=== PATIENT | male | born 1975 | race Hispanic/Latino ===

== ENCOUNTER 2019-03-29 11:34 | Observation (INO) | payer BC ==
[~2019-03-29] VITALS: Ht 177.8 cm; Wt 97.1 kg
[~2019-03-29 11:34] MED LIST: FISH OIL 1,0001 EAC2 PO; LISINOPRIL-HCT1 EACH PO; MULTI-VITAMIN1 EACH PO
--- OUTSIDE RECORDS SUMMARY | 2019-03-29 11:37 | XMS REPORT | Encounter Summary ---
Author Organization Unknown Address [address] [place] [address] Phone [phone] Care Team Providers Care Irish Moss Bleacher Name Role Phone Regan Chino 3 [phone] Reason for Visit Medical Complaint Instructions 1. Upper respiratory infection upper respiratory infection (cold): care instructions Tessalon Perles 100 mg capsule prednisone 10 mg tablet 2. Exposure to Influenzavirus rapid flu (A+B) Tamiflu 75 mg capsule 3. Expiratory wheezing peak flow 4. Sore throat symptom sore throat: care instructions rapid strep group A, throat 5. Body mass index 30+ - obesity body mass index: care instructions 6. Immunization due Discussion Note Take charge of your health handout given and discussed. SE of medictions discussed and pt verbalized understanding. Plan of Care Patient Instructions How can you care for yourself at home? Get plenty of rest. Drink plenty of fluids, enough so that your urine is light yellow or clear like water. If you have kidney, heart, or liver disease and have to limit fluids, talk with your doctor before you increase the amount of fluids you drink. Take an vxmb-tvd-zcbijdy pain medicine if needed, such as acetaminophen (Tylenol), ibuprofen (Advil, Motrin), or naproxen (Aleve), to relieve fever, headache, and muscle aches. Read and follow all instructions on the label. No one younger than 20 should take aspirin. It has been linked to Kacy syndrome, a serious illness. Do not smoke. Smoking can make the flu worse. If you need help quitting, talk to your doctor about stop-smoking programs and medicines. These can increase your chances of quitting for good. Breathe moist air from a hot shower or from a sink filled with hot water to help clear a stuffy nose. Before you use cough and cold medicines, check the label. These medicines may not be safe for young children or for people with certain health problems. If the skin around your nose and lips becomes sore, put some petroleum jelly on the area. To ease coughing: Drink fluids to soothe a scratchy throat. Suck on cough drops or plain hard candy. Take an vshm-jkg-ebitomy cough medicine that contains dextromethorphan to help you get some sleep. Read and follow all instructions on the label. Raise your head at night with an extra pillow. This may help you rest if coughing keeps you awake. Take any prescribed medicine exactly as directed. Call your doctor if you think you are having a problem with your medicine. To avoid spreading the flu Wash your hands regularly, and keep your hands away from your face. Stay home from school, work, and other public places until you are feeling better and your fever has been gone for at least 24 hours. The fever needs to have gone away on its own without the help of medicine. Ask people living with you to talk to their doctors about preventing the flu. They may get antiviral medicine to keep from getting the flu from you. To prevent the flu in the future, get a flu vaccine every fall. Encourage people living with you to get the vaccine. Cover your mouth when you cough or sneeze. When should you call for help? Call 911 anytime you think you may need emergency care. For example, call if: You have severe trouble breathing. Call your doctor now or seek immediate medical care if: You have new or worse trouble breathing. You seem to be getting much sicker. You feel very sleepy or confused. You have a new or higher fever. You get a new rash. Watch closely for changes in your health, and be sure to contact your doctor if: You begin to get better and then get worse. You are not getting better after 1 week. Reminders Provider Appointments None recorded. Lab Rapid Flu (A+B) 10/30/2018 [facility] Rapid Strep Group a, Throat 10/30/2018 [facility] Referral None recorded. Procedures None recorded. Surgeries None recorded. Imaging None recorded. Medications Name Start Date levofloxacin 500 mg tabs lisinopril 20 mg-hydrochlorothiazide 12.5 mg tablet TAKE TWO (2) TABLET(S) BY MOUTH ONCE A DAY. lisinopril/hydrochlorothiazide 20-12.5 mg tabs prednisone 10 mg tablet Take 1 tablet every day by oral route for 5 days. Tamiflu 75 mg capsule Take 1 capsule twice a day by oral route for 5 days. Tessalon Perles 100 mg capsule Take 1 capsule 3 times a day by oral route for 5 days. Medications Administered None recorded. Vitals Height Weight BMI Blood Pressure 5 ft 10 in 210 lbs 30.1 kg/m2 122/86 mm[Hg] Lab Results Date Name Specimen Result Interpretation Description Value Range Status Address 10/30/2018 Rapid Flu (A+B) Influenza a negative [facility]: [address] [place] [address] Influenza B negative [facility]: [address] [place] [address] Rapid Strep Group a, Throat Result negative [facility]: [address] [place] [address] Swab Location Left and Right tonsillar pillars [facility]: [address] [place] [address] Allergies Code Code System Name Reaction Severity Status Onset Penicillins Respiratory Distress Active Problems Name Status Onset Date Source Hypertensive Disorder Active 10/30/2018 Acute Upper Respiratory Infection Active Encounter Procedures None recorded. Vaccine List Vaccine Type Tdap 10/05/2011 Social History Smoking Status Never Smoker Past Encounters 10/30/2018 Upper Respiratory Infection; Exposure to Influenzavirus; Expiratory Wheezing; Sore Throat Symptom; Body Mass Index 30+ - Obesity; Immunization Due Niles Brito, [employer] MANAGER-C: [address] [place] [address], Ph. History of Present Illness Fuzpi-Muwqgasjid-Ztaobgi Reported By: Patient HPI: Location: head/sinuses, throat, chest. Quality: productive cough, sore throat, colored phlegm, nasal/sinus congestion. Duration: 3days. Severity: moderate, pain level 5/10. Onset/Timing: actual date 10/26/18. Context: no sick contacts. Modifying factors: OTC medication. Associated Symptoms: no shortness of breath, no wheezing, no change in number of pillows needed to sleep at night, no sweats, no significant weight gain, no significant weight loss, no morning cough, no vomiting, no diarrhea, no rash, no fever, yellow-green, thick sputum, sore throat, nausea, fever, muscle aches, headache Review of Systems:ROS as noted in the HPI Review of Systems Basic Reported By: Patient Physical Exam Adult Basic, Adult Male Complete Reported By: Patient Constitutional: General Appearance: healthy-appearing, well-nourished, well-developed. Level of Distress: mild distress, acutely ill. Ambulation: ambulating normally Psychiatric: Mental Status: active and alert. Orientation: to time, to place, to person Eyes: Lids and Conjunctivae: non-injected, no discharge, no pallor Apj-Szoj-Krkuu-Throat: Ears: no lesions on external ear, no outer ear tenderness, EACs clear, TMs clear, TM mobility normal. Hearing: no hearing loss. Nose: no lesions on external nose, nares patent, no septal deviation, nasal passages clear, no sinus tenderness, nasal discharge. Lips, Teeth, and Gums: no mouth or lip ulcers, no bleeding gums, normal dentition. Oropharynx: moist mucous membranes, no exudates, erythema, tonsils enlarged 1+ Neck: Lymph Nodes: no cervical LAD; submandibular LAD Lungs: Respiratory effort: no dyspnea, no tachypnea, no use of accessory muscles, no intercostal retractions. Auscultation: good air movement, expiratory wheezing Cardiovascular: Heart Auscultation: RRR, no murmurs
--- OUTSIDE RECORDS SUMMARY | 2019-03-29 11:37 | XMS REPORT | Continuity of Care Document ---
Author Author [facility] Interface Address Unknown Phone Unavailable Problems Problem Status Onset Date Classification Date Reported Comments Source History of hypertension 11/03/2018 Diagnosis 11/03/2018 [facility] Lower respiratory tract infection 11/03/2018 Diagnosis 11/03/2018 [facility] Immunization due 10/30/2018 Diagnosis 11/03/2018 [facility] Body mass index 30+ - obesity 10/30/2018 Diagnosis 11/03/2018 [facility] Sore throat symptom 10/30/2018 Diagnosis 11/03/2018 [facility] Expiratory wheezing 10/30/2018 Diagnosis 11/03/2018 [facility] Exposure to Influenzavirus 10/30/2018 Diagnosis 11/03/2018 [facility] Upper respiratory infection 10/30/2018 Diagnosis 11/03/2018 [facility] Hypertensive Disorder 10/30/2018 Problem 11/03/2018 [facility] Influenza-like symptoms 09/22/2017 Diagnosis 09/22/2017 [facility] Pain in throat 09/22/2017 Diagnosis 09/22/2017 [facility] Acute upper respiratory infection 07/25/2017 Diagnosis 07/25/2017 [facility] Acute pharyngitis 07/25/2017 Diagnosis 07/25/2017 [facility] Acute Upper Respiratory Infection Problem 11/03/2018 [facility] Medications Medication Details Route Status Patient Instructions Ordering Provider Order Date Source benzonatate 200 MG Oral Capsule benzonatate 200 mg capsule Take 1 capsule 3 times a day by oral route as needed. Active [facility] Fenofibrate 160 MG Oral Tablet fenofibrate 160 mg tablet TAKE ONE (1) TABLET(S) BY MOUTH ONCE A DAY WITH A MEAL. Active [facility] fluticasone propionate 50 mcg/act susp fluticasone propionate 50 mcg/act susp Active [facility] Hydrochlorothiazide 12.5 MG / Lisinopril 20 MG Oral Tablet lisinopril 20 mg-hydrochlorothiazide 12.5 mg tablet TAKE TWO (2) TABLET(S) BY MOUTH ONCE A DAY. Active [facility] Oseltamivir 75 MG Oral Capsule [Tamiflu] Tamiflu 75 mg capsule Take 1 capsule twice a day by oral route for 5 days. Active [facility] Tamsulosin hydrochloride 0.4 MG Oral Capsule tamsulosin 0.4 mg capsule TAKE ONE (1) CAPSULE(S) BY MOUTH 30 MINUTES AFTER SUPPER. Active [facility] Azithromycin 250 MG Oral Tablet Zithromax Z-Charles 250 mg tablet TAKE 2 TABLETS (500 MG) BY ORAL ROUTE ONCE DAILY FOR 1 DAY THEN 1 TABLET (250 MG) BY ORAL ROUTE ONCE DAILY FOR 4 DAYS Active [facility] Fluticasone propionate 0.05 MG/ACTUAT Metered Dose Nasal [place] fluticasone 50 mcg/actuation nasal spray,suspension [place] 2 sprays every day by intranasal route around the clock for 10 days. Active [facility] levocetirizine dihydrochloride 5 MG Oral Tablet levocetirizine 5 mg tablet Take 1 tablet every day by oral route as needed. Take at bedtime. Active [facility] Lidocaine Hydrochloride 20 MG/ML Mucous Membrane Topical Solution Lidocaine Viscous 2 % mucosal solution Take 15 mL every 3 hours by oral route as needed. Swish gargle & spit Active [facility] Hydrochlorothiazide 25 MG / Losartan Potassium 100 MG Oral Tablet losartan 100 mg-hydrochlorothiazide 25 mg tablet TAKE ONE (1) TABLET(S) BY MOUTH ONCE A DAY. Active [facility] [place]-3 Acid Ethyl Esters (PRISON) 1000 MG Oral Capsule omega- 3 acid ethyl esters 1 gram capsule TAKE TWO (2) CAPSULE(S) BY MOUTH TWICE A DAY. Active [facility] [id number] ethyl esters 1 gm caps [id number] ethyl esters 1 gm caps Active [facility] levofloxacin 500 mg tabs levofloxacin 500 mg tabs Active [facility] lisinopril/hydrochlorothiazide 20-12.5 mg tabs lisinopril/hydrochlorothiazide 20-12.5 mg tabs Active [facility] Prednisone 10 MG Oral Tablet prednisone 10 mg tablet TAKE ONE (1) TABLET(S) BY MOUTH ONCE A DAY FOR 5 DAYS. Active [facility] benzonatate 100 MG Oral Capsule [Tessalon Perles] Tessalon Perles 100 mg capsule Take 1 capsule 3 times a day by oral route for 5 days. Active [facility] benzonatate 100 MG Oral Capsule benzonatate 100 mg capsule TAKE ONE (1) CAPSULE(S) BY MOUTH THREE TIMES A DAY FOR 5 DAYS. Active [facility] Brompheniramine Maleate 0.4 MG/ML / Dextromethorphan Hydrobromide 2 MG/ML / Pseudoephedrine Hydrochloride 6 MG/ML Oral Solution [Bromfed DM] Bromfed DM 2 mg-30 mg-10 mg/5 mL oral syrup Take 10 mL 3 times a day by oral route as needed for cough and congestion for 7 days. Active [facility] Oseltamivir 75 MG Oral Capsule oseltamivir 75 mg capsule TAKE ONE (1) CAPSULE(S) BY MOUTH TWICE A DAY FOR 5 DAYS. Active [facility] Allergies, Adverse Reactions, Alerts Substance Category Reaction Severity Reaction type Status Date Reported Comments Source Penicillins Respiratory distress Allergy to substance 11/15/2015 [facility] Immunizations Immunization Date Given Site Status Last Updated Comments Source Tdap 10/05/2011 completed [facility] Results Order Name Results Value Reference Range Date Interpretation Comments Source PEF 450 11/03/2018 [facility] Percent Predicted Value 71 11/03/2018 [facility] RESULT negative 11/03/2018 [facility] SWAB LOCATION Left and Right tonsillar pillars 11/03/2018 [facility] PEF 610 10/30/2018 [facility] Percent Predicted Value 96 10/30/2018 [facility] Influenza A negative 10/30/2018 [facility] Influenza B negative 10/30/2018 [facility] Influenza A negative 10/30/2018 [facility] Influenza B negative 10/30/2018 [facility] RESULT negative 10/30/2018 [facility] SWAB LOCATION Left and Right tonsillar pillars 10/30/2018 [facility] RESULT negative 09/22/2017 [facility] SWAB LOCATION Left and Right tonsillar pillars 09/22/2017 [facility] RESULT negative 07/25/2017 [facility] SWAB LOCATION Left and Right tonsillar pillars 07/25/2017 [facility] Influenza A negative 07/25/2017 [facility] Influenza B negative 07/25/2017 [facility] Vital Signs Vital Sign Value Date Comments Source Diastolic (mm Hg) 84 11/03/2018 [facility] Height 70 11/03/2018 [facility] Systolic (mm Hg) 120 11/03/2018 [facility] Weight 210 11/03/2018 [facility] Diastolic (mm Hg) 86 10/30/2018 [facility] Height 70 10/30/2018 [facility] Systolic (mm Hg) 122 10/30/2018 [facility] Weight 210 10/30/2018 [facility] Diastolic (mm Hg) 80 09/22/2017 [facility] Height 70 09/22/2017 [facility] Systolic (mm Hg) 122 09/22/2017 [facility] Weight 214 09/22/2017 [facility] Diastolic (mm Hg) 72 07/25/2017 [facility] Height 70 07/25/2017 [facility] Systolic (mm Hg) 114 07/25/2017 [facility] Weight 214 07/25/2017 [facility] Encounters Location Location Details Encounter Type Encounter Number Reason For Visit Attending Provider ADM Date DC Date Status Source [place] - [facility] - [id number] LorieRAIZA CastroP-C: [address] [place] [address], Ph. [id number] Lorie Jones 07/25/2017 [facility] [place] [facility] - [id number] RAIZA PattersonP-C: [address] [place] [address], Ph. [id number] Steven Ashley 09/22/2017 [facility] [place] - [facility] - [id number] RAIZA LopezP-C: [address] [place] [address], Ph. [id number] Niles Brito 10/30/2018 [facility] [place] - [facility] - [id number] NIRAJ Lopez-C: [address] [place] [address], Ph. [id number] Niles Brito 10/30/2018 [facility] [place] - [facility] - [id number] NIRAJ Lopez-C: [address] [facility], [place] [address], Ph. [id number] Niles Brito 11/03/2018 [facility] Procedures Procedure Code Date Perfomer Comments Source
--- OUTSIDE RECORDS SUMMARY | 2019-03-29 11:37 | XMS REPORT | Encounter Summary ---
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 Acute upper respiratory infection upper respiratory infection (cold): care instructions fluticasone 50 mcg/actuation nasal spray,suspension rapid flu (A+B) levocetirizine 5 mg tablet 2. Acute pharyngitis sore throat: care instructions Lidocaine Viscous 2 % mucosal solution rapid strep group A, throat azithromycin 250 mg tablet Discussion Note Pt is in NAD; Verbalizes understanding of all instructions with no questions at this time. Plan of Care Patient Instructions Stop dayquil and nyquil. Take fluticasone as needed for congestion. [place] one spray in each nostril twice a day. Take a warm, steamy shower, blow your nose thereafter, and spray in each nostril. Tilt your head up for about 10 seconds and breath through your mouth. Do not sniff or snort the medication in or else the medication will go to your throat and not be absorbed appropriately. Gargle and spit viscous lidocaine as needed for sore throat as directed. if there is no improvement of sore throat in 48-72 hrs start antibiotic and take as directed.Take levocetirizine for allergy like symptoms like runny nose, sneezing and watery eyes. Alternate with Ibuprofen and acetaminophen every 4hrs as needed for pain/fever/pain/headache. Proper hydration and rest. Return to work/school if free of fever for 24-hrs Do not share any utensils/cups, no kissing, recommend hand washing after coughing/sneezing/blowing nose and cover face when you do so. Take medications as prescribed. Return to clinic or follow up with your PCP within 2-3 days if symptoms worsen as discussed. Reminders Provider Appointments None recorded. Lab Rapid Flu (A+B) 07/25/2017 [facility] Rapid Strep Group a, Throat 07/25/2017 [facility] Referral None recorded. Procedures None recorded. Surgeries None recorded. Imaging None recorded. Medications Name Start Date azithromycin 250 mg tablet TAKE 2 TABLETS (500 MG) BY ORAL ROUTE ONCE DAILY FOR 1 DAY THEN 1 TABLET (250 MG) BY ORAL ROUTE ONCE DAILY FOR 4 DAYS fenofibrate 160 mg tablet TAKE ONE (1) TABLET(S) BY MOUTH ONCE A DAY WITH A MEAL. fluticasone 50 mcg/actuation nasal spray,suspension [place] 2 sprays every day by intranasal route around the clock for 10 days. levocetirizine 5 mg tablet Take 1 tablet every day by oral route as needed. Take at bedtime. Lidocaine Viscous 2 % mucosal solution Take 15 mL every 3 hours by oral route as needed. losartan 100 mg-hydrochlorothiazide 25 mg tablet TAKE ONE (1) TABLET(S) BY MOUTH ONCE A DAY. omega-3 acid ethyl esters 1 gram capsule TAKE TWO (2) CAPSULE(S) BY MOUTH TWICE A DAY. [id number]-[id number] ethyl esters 1 gm caps tamsulosin 0.4 mg capsule TAKE ONE (1) CAPSULE(S) BY MOUTH 30 MINUTES AFTER SUPPER. Medications Administered None recorded. Vitals Height Weight BMI Blood Pressure 5 ft 10 in 214 lbs 30.7 kg/m2 114/72 mm[Hg] Lab Results Date Name Specimen Result Interpretation Description Value Range Status Address Rapid Strep Group a, Throat Result negative [facility]: [address] [place] [address] Swab Location Left and Right tonsillar pillars [facility]: [address] [place] [address] Rapid Flu (A+B) Influenza a negative [facility]: [address] [place] [address] Influenza B negative [facility]: [address] [place] [address] Allergies Code Code System Name Reaction Severity Status Onset Penicillins Active Problems Name Status Onset Date Source Acute Upper Respiratory Infection Active Encounter Procedures None recorded. Vaccine List Vaccine Type Tdap 10/05/2011 Social History Smoking Status Never Smoker Past Encounters 07/25/2017 Acute Upper Respiratory Infection; Acute Pharyngitis NIRAJ Lloyd-C: [address] [place] [address], Ph. History of Present Illness [id number] Reported By: Patient HPI: Quality: symptoms worse during the day. Duration: 1 days. Severity: subjective temperature. Context: no ill contacts, no tick/insect bites, no recent travel, no new medications. Associated Symptoms: no fever/chills, no headache, no muscle aches, no rash, no lethargy, cough, nasal passage blockage (stuffiness), nasal discharge; sore throat, sneezing, and body aches. Modifying Factors nothing gives relief Note:<div>
</div> Review of Systems:ROS as noted in the HPI Review of Systems Basic Reported By: Patient Physical Exam Adult Basic, Adult Female Complete, Adult Male Complete Reported By: Patient Constitutional: General Appearance: healthy-appearing, well-nourished, well-developed. Level of Distress: NAD. Ambulation: ambulating normally Psychiatric: Mental Status: active and alert. Orientation: to time, to place, to person Trj-Nfln-Dfyrc-Throat: Ears: no lesions on external ear, no outer ear tenderness, EACs clear, TMs clear. Hearing: no hearing loss. Nose: no lesions on external nose, nares patent, no septal deviation, nasal passages clear, no sinus tenderness, nasal discharge--rhinorrhea, post nasal drip. Lips, Teeth, and Gums: no mouth or lip ulcers, no bleeding gums, normal dentition. Oropharynx: moist mucous membranes, no exudates, tonsils not enlarged, erythema Neck: Lymph Nodes: no cervical LAD Lungs: Respiratory effort: no dyspnea, no tachypnea, no use of accessory muscles, no intercostal retractions. Auscultation: breath sounds normal, good air movement Cardiovascular: Heart Auscultation: RRR, no murmurs Neurologic: Gait and Station: normal gait, normal station
--- OUTSIDE RECORDS SUMMARY | 2019-03-29 11:37 | XMS REPORT | Encounter Summary ---
Author Organization Unknown Address [address] [place] [address] Phone [phone] Care Team Providers Care Backwinder Name Role Phone Regan Chino 3 [phone] Reason for Visit Medical Complaint Instructions 1. Influenza-like symptoms Tamiflu 75 mg capsule benzonatate 200 mg capsule 2. Pain in throat sore throat: care instructions rapid strep group A, throat Discussion Note: None recorded. Plan of Care Patient Instructions otc tylenol and ibuprofen for fever and body aches. increase fluids. follow up pcp Reminders Provider Appointments None recorded. Lab Rapid Strep Group a, Throat 09/22/2017 [facility] Referral None recorded. Procedures None recorded. Surgeries None recorded. Imaging None recorded. Medications Name Start Date benzonatate 200 mg capsule Take 1 capsule 3 times a day by oral route as needed. fenofibrate 160 mg tablet TAKE ONE (1) TABLET(S) BY MOUTH ONCE A DAY WITH A MEAL. fluticasone propionate 50 mcg/act susp lisinopril 20 mg-hydrochlorothiazide 12.5 mg tablet TAKE TWO (2) TABLET(S) BY MOUTH ONCE A DAY. Tamiflu 75 mg capsule Take 1 capsule twice a day by oral route for 5 days. tamsulosin 0.4 mg capsule TAKE ONE (1) CAPSULE(S) BY MOUTH 30 MINUTES AFTER SUPPER. Medications Administered None recorded. Vitals Height Weight BMI Blood Pressure 5 ft 10 in 214 lbs 30.7 kg/m2 122/80 mm[Hg] Lab Results Date Name Specimen Result Interpretation Description Value Range Status Address Rapid Strep Group a, Throat Result negative [facility]: [address] [place] [address] Swab Location Left and Right tonsillar pillars [facility]: [address] [place] [address] Allergies Code Code System Name Reaction Severity Status Onset Penicillins Respiratory Distress Active Problems Name Status Onset Date Source Acute Upper Respiratory Infection Active Encounter Procedures None recorded. Vaccine List Vaccine Type Tdap 10/05/2011 Social History Smoking Status Never Smoker Past Encounters 09/22/2017 Influenza-like Symptoms; Pain in Throat NIRAJ [facility]: [address], [place] [address], Ph. History of Present Illness Rbvhr-Wmbgjpgblh-Fkvlqxd Reported By: Patient HPI: Location: head/sinuses, throat, chest. Quality: productive cough, sore throat. Duration: 1days. Severity: moderate. Onset/Timing: gradual. Context: no foreign travel, non-smoker, sick contact. Modifying factors: OTC medication. Associated Symptoms: no shortness of breath, no wheezing, no change in number of pillows needed to sleep at night, no sweats, no significant weight gain, no significant weight loss, no morning cough, no vomiting, no diarrhea, no rash, no nausea, no fever, no headache, yellow sputum, fatigue, sore throat, fever, muscle aches Review of Systems:ROS as noted in the HPI Review of Systems Basic Reported By: Patient Physical Exam Adult Basic, Adult Male Complete Reported By: Patient Constitutional: General Appearance: healthy-appearing, well-nourished, well-developed. Level of Distress: NAD. Ambulation: ambulating normally Psychiatric: Mental Status: active and alert Eyes: Lids and Conjunctivae: non-injected, no discharge Mqx-Rsxc-Hwyqv-Throat: Ears: no lesions on external ear, no outer ear tenderness, EACs clear, TMs clear, TM mobility normal. Hearing: no hearing loss. Nose: no lesions on external nose, nares patent, no septal deviation, nasal passages clear, no sinus tenderness, nasal discharge--purulent; congestion. Lips, Teeth, and Gums: no mouth or lip ulcers. Oropharynx: moist mucous membranes, no erythema, no exudates, tonsils not enlarged Neck: Neck: trachea midline. Lymph Nodes: no cervical LAD Lungs: Respiratory effort: no dyspnea, no tachypnea, no use of accessory muscles, no intercostal retractions. Auscultation: breath sounds normal, good air movement Cardiovascular: Heart Auscultation: RRR, no murmurs
--- OUTSIDE RECORDS SUMMARY | 2019-03-29 11:38 | XMS REPORT | Encounter Summary ---
Author Organization Unknown Address [address] [place] [address] Phone [phone] Care Team Providers Care Manager Trading Name Role Phone Regan Chino 3 [phone] Reason for Visit Medical Complaint Instructions 1. Lower respiratory tract infection Zithromax Z-Charles 250 mg tablet Bromfed DM 2 mg-30 mg-10 mg/5 mL oral syrup peak flow 2. Sore throat symptom sore throat: care instructions Lidocaine Viscous 2 % mucosal solution 3. Immunization due 4. History of hypertension 5. Body mass index 30+ - obesity body mass index: care instructions Discussion Note Take charge of your health handout given and discussed. SE of medictions discussed and pt verbalized understanding. Plan of Care Patient Instructions How can you care for yourself at home? Be safe with medicines. Take your medicines exactly as prescribed. Call your doctor if you think you are having a problem with your medicine. Take your antibiotics as directed. Do not stop taking them just because you feel better. You need to take the full course of antibiotics. Ask your doctor if you can take an munh-qlz-ljjrtcb pain medicine, such as acetaminophen (Tylenol), ibuprofen (Advil, Motrin), or naproxen (Aleve). Read and follow all instructions on the label. Do not take two or more pain medicines at the same time unless the doctor told you to. Many pain medicines have acetaminophen, which is Tylenol. Too much acetaminophen (Tylenol) can be harmful. Take care of your cough so you can rest. A cough that brings up mucus from your lungs is common with pneumonia. It is one way your body gets rid of the infection. But if coughing keeps you from resting or causes severe fatigue and chest-wall pain, talk to your doctor. He or she may suggest that you take a medicine to reduce the cough. Do not smoke or allow others to smoke around you. When should you call for help? Call 911 anytime you think you may need emergency care. For example, call if: You have severe trouble breathing. Call your doctor now or seek immediate medical care if: You cough up dark brown or bloody mucus (sputum). You have new or worse trouble breathing. You are dizzy or lightheaded, or you feel like you may faint. Watch closely for changes in your health, and be sure to contact your doctor if: You have a new or higher fever. Your cough or wheezing has not gone away after 2 to 4 weeks. You are not getting better as expected. Reminders Provider Appointments None recorded. Lab None recorded. Referral None recorded. Procedures None recorded. Surgeries None recorded. Imaging None recorded. Medications Name Start Date benzonatate 100 mg capsule TAKE ONE (1) CAPSULE(S) BY MOUTH THREE TIMES A DAY FOR 5 DAYS. Bromfed DM 2 mg-30 mg-10 mg/5 mL oral syrup Take 10 mL 3 times a day by oral route as needed for cough and congestion for 7 days. fenofibrate 160 mg tablet TAKE ONE (1) TABLET(S) BY MOUTH ONCE A DAY WITH A MEAL. levofloxacin 500 mg tabs Lidocaine Viscous 2 % mucosal solution Take 15 mL every 3 hours by oral route as needed. Swish gargle & spit lisinopril 20 mg-hydrochlorothiazide 12.5 mg tablet TAKE TWO (2) TABLET(S) BY MOUTH ONCE A DAY. oseltamivir 75 mg capsule TAKE ONE (1) CAPSULE(S) BY MOUTH TWICE A DAY FOR 5 DAYS. prednisone 10 mg tablet TAKE ONE (1) TABLET(S) BY MOUTH ONCE A DAY FOR 5 DAYS. Zithromax Z-Charles 250 mg tablet TAKE 2 TABLETS (500 MG) BY ORAL ROUTE ONCE DAILY FOR 1 DAY THEN 1 TABLET (250 MG) BY ORAL ROUTE ONCE DAILY FOR 4 DAYS Medications Administered None recorded. Vitals Height Weight BMI Blood Pressure 5 ft 10 in 210 lbs 30.1 kg/m2 120/84 mm[Hg] Lab Results Date Name Specimen Result Interpretation Description Value Range Status Address 10/30/2018 Peak Flow Pef 610 [facility]: [address] [place] [address] Percent Predicted Value 96 [facility]: [address] [place] [address] 10/30/2018 Rapid Flu (A+B) Influenza a negative [facility]: [address] [place] [address] Influenza B negative [facility]: [address] [place] [address] Peak Flow Pef 450 [facility]: [facility] Percent Predicted Value 71 [facility]: [facility] Rapid Strep Group a, Throat Result negative [facility]: [facility] Swab Location Left and Right tonsillar pillars [facility]: [facility] Allergies Code Code System Name Reaction Severity Status Onset Penicillins Respiratory Distress Active Problems Name Status Onset Date Source Hypertensive Disorder Active 10/30/2018 Acute Upper Respiratory Infection Active Encounter Procedures None recorded. Vaccine List Vaccine Type Tdap 10/05/2011 Social History Smoking Status Never Smoker Past Encounters 11/03/2018 Lower Respiratory Tract Infection; Sore Throat Symptom; Immunization Due; History of Hypertension; Body Mass Index 30+ - Obesity MARCO Lopez: [address] [place] [address], Ph. 10/30/2018 Upper Respiratory Infection; Exposure to Influenzavirus; Expiratory Wheezing; Sore Throat Symptom; Body Mass Index 30+ - Obesity; Immunization Due MARCO Lopez: [address] [place] [address], Ph. History of Present Illness Cough Reported By: Patient HPI: Location: chest, nasal/sinus. Quality: colored phlegm, feels 60 percent of normal. Duration: 6 days. Severity: moderate, pain level 6/10. Onset/Timing: gradual. Context: no sick contacts, no foreign travel, non-smoker. Modifying factors: ; Tamiflu. Associated Symptoms: no wheezing, no sweats, no significant weight gain, no significant weight loss, no sore throat, no vomiting, no diarrhea, no rash, no nausea, no fever/chills, no muscle aches, chest pain, rust colored sputum, shortness of breath, difficulty breathing at night, morning cough, headache Sumcv-Jugcabboxi-Gqromkb Reported By: Patient HPI: Location: head/sinuses, throat, [...] By: Patient Constitutional: General Appearance: healthy-appearing, well-nourished, well-developed, overweight. Level of Distress: mild distress, acutely ill. Ambulation: ambulating normally Psychiatric: Mental Status: active and alert. Orientation: to time, to place, to person Eyes: Lids and Conjunctivae: non-injected, no discharge, no pallor Ryz-Tmha-Enjdq-Throat: Ears: no lesions on external ear, no outer ear tenderness, EACs clear, TMs clear, TM mobility normal. Hearing: no hearing loss. Nose: no lesions on external nose, nares patent, no septal deviation, nasal passages clear, no sinus tenderness, no nasal discharge. Lips, Teeth, and Gums: no mouth or lip ulcers, no bleeding gums, normal dentition. Oropharynx: moist mucous membranes, no erythema, no exudates, tonsils not enlarged Neck: Lymph Nodes: no cervical LAD Lungs: Respiratory effort: no dyspnea, no tachypnea, no use of accessory muscles, no intercostal retractions. Auscultation: breath sounds normal, good air movement Cardiovascular: Heart Auscultation: RRR, no murmurs
[2019-03-29] MEDS ORDERED: ASPIRIN 81 MG CHEW TAB PO ONE (12:00)
[2019-03-29 12:47] LABS: BASOPHILS % 0.6 % (0.0-1.0); EOSINOPHILS # (AUTO) 0.1 (0.0-0.4); EOSINOPHILS % 1.7 % (0.0-6.0); HEMATOCRIT 42.1 % (38.2-49.6); LYMPHOCYTES # (AUTO) 2.6 (1.0-3.2); LYMPHOCYTES % 39.8 % (18.0-39.1); MEAN CORPUSCULAR HEMOGLOBIN 29.5 pg (28-32); MEAN CORPUSCULAR HGB CONC 35.6 g/dL (31-35); MEAN CORPUSCULAR VOLUME 82.7 fL (81-99); MONOCYTES # (AUTO) 0.5 (0.2-0.8); MONOCYTES % 8.2 % (4.4-11.3); NEUTROPHILS # (AUTO) 3.2 (2.1-6.9); NEUTROPHILS % 49.4 % (38.7-80.0); PLATELET COUNT 280 x10e3/uL (140-360); RED BLOOD COUNT 5.09 x10e6/uL (4.3-5.7)
[2019-03-29 13:02] LABS: INR 0.86; PROTHROMBIN TIME 12.2 seconds (11.9-14.5)
[2019-03-29 13:03] LABS: PARTIAL THROMBOPLASTIN TIME 29.6 seconds (23.8-35.5)
[2019-03-29 13:09] LABS: ALANINE AMINOTRANSFERASE 43 IU/L (0-55); ALBUMIN 4.9 g/dL (3.5-5.0); ALBUMIN/GLOBULIN RATIO 1.4 (0.8-2.0); ALKALINE PHOSPHATASE 55 IU/L (40-150); BLOOD UREA NITROGEN 12 mg/dL (7-26); BUN/CREATININE RATIO 11 (6-25); CALCIUM 10.4 mg/dL (8.4-10.2); CARBON DIOXIDE 25 mmol/L (22-29); CREATINE KINASE 212 IU/L (30-200); CREATININE, SERUM 1.06 mg/dL (0.72-1.25); EST GLOMERULAR FILTRATION RATE > 60 ML/MIN (60-); GLUCOSE 98 mg/dL (74-118); HDL CHOLESTEROL 44 MG/DL (40-60); MAGNESIUM 2.4 MG/DL (1.3-2.1); TRIGLYCERIDES 486 MG/DL (0-149)
[2019-03-29 13:18] LABS: BILIRUBIN,URINE NEGATIVE (NEGATIVE); CLARITY,URINE CLEAR (CLEAR); COLOR,URINE YELLOW (YELLOW); KETONES,URINE NEGATIVE (NEGATIVE); LEUKOCYTE ESTERASE ,URINE NEGATIVE (NEGATIVE); NITRITE,URINE NEGATIVE (NEGATIVE); PROTEIN,URINE DIPSTICK NEGATIVE (NEGATIVE); URINE UROBILINOGEN 0.2 mg/dL (0.2 - 1)
--- NOTE | 2019-03-29 13:43 | Diagnostic Imaging Report ---
EXAM: CHEST SINGLE (PORTABLE), AP Portable DATE: 03/29/2019 Time stamp on exam: 12:18 PM INDICATION: Chest pain COMPARISON: None FINDINGS: LINES/TUBES: None LUNGS: No consolidations or edema. PLEURA: No effusions or pneumothorax. HEART AND MEDIASTINUM: Normal size and contour. BONES AND SOFT TISSUES: No acute findings. IMPRESSION: No acute thoracic abnormality. Signed by: Dr. Aj Zaragoza DO on 03/29/2019 1:40 PM
[2019-03-29] MEDS ORDERED: MORPHINE SULFATE INJ 4 MG/ML INJ 1ML IV PRN (13:45)
[2019-03-29] MEDS ORDERED: ONDANSETRON HCL INJ 2MG/ML 2ML 2 MG/ML VIAL IV PRN (13:45)
[2019-03-29] MEDS ORDERED: NITROGLYCERIN 0.4 MG SUBL SL PRN (13:45)
[2019-03-29 13:46] LABS: CHLORIDE 99 mmol/L (98-107); POTASSIUM 3.3 mmol/L (3.5-5.1); SODIUM 137 mmol/L (136-145)
[2019-03-29 13:51] LABS: ANION GAP 16.3 mmol/L (8-16)
--- OUTSIDE RECORDS SUMMARY | 2019-03-29 13:57 | XMS REPORT ---
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 Allergies, Adverse Reactions, Alerts This patient has no known allergies or adverse reactions. Medications This patient has no known medications. 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 PLEURA: No effusions or pneumothorax. HEART AND MEDIASTINUM: Normal size and contour. BONES AND SOFT TISSUES: No acute findings. IMPRESSION: No acute thoracic abnormality. Signed by: Dr. Thomas Zaragoza DO on 03/29/2019 1:40 PM Dictated By: THOMAS ZARAGOZA DO 1340 Transcribed By: TRENT on 03/29/19 1340 COPY TO: MARCELLO POMPA NP
[2019-03-29] MEDS: FAMOTIDINE 20 MG/2 ML VIAL IV SCH (14:37)
[2019-03-29] MEDS ORDERED: POTASSIUM CHLORIDE 20 MEQ TAB CR PO ONE (15:00)
[2019-03-29 15:24] LABS: CHOL/HDL RATIO 7.2 (3.9-4.7); CHOLESTEROL 317 MD/DL (0-199)
[2019-03-29 15:35] VITALS: BP 146/87
[2019-03-29 15:39] VITALS: BP 146/87
--- NOTE | 2019-03-29 15:48 | NUR ---
patient received from ER via stretcher. see admit assess. sinus rhythm/sinus kristy. family at BS. patient oriented x4. vitals stable with no distress.
--- NOTE | 2019-03-29 19:00 | NUR ---
Report and walking rounds completed. Patient in bed, eating with visitor at bedside. Call light within reach. Will continue to monitor.
[2019-03-29] MEDS ORDERED: ACETAMINOPHEN 325 MG TAB PO PRN (19:15)
--- NOTE | 2019-03-29 19:19 | NUR ---
Spoke with Dr Chino, patient requesting tylenol or motrin. No current order. New order received.
--- NOTE | 2019-03-29 19:20 | NUR ---
Spoke with Dr Grant regarding new consult from Dr Chino. Will see patient and new orders received.
[2019-03-29 20:01] VITALS: BP 148/86
[2019-03-29 20:02] VITALS: BP 148/86
[2019-03-29 20:37] LABS: CREATINE KINASE 172 IU/L (30-200)
[2019-03-29] MEDS ORDERED: ATORVASTATIN 20 MG TAB PO SCH (21:00)
[2019-03-29 23:30] VITALS: BP 123/65
--- NOTE | 2019-03-29 23:30 | NUR ---
Tele called and reported patient HR down to 46. Patient sleeping. Patient remains asymptomatic. VS stable. Will continue to monitor.
[2019-03-30] MEDS: FAMOTIDINE 20 MG/2 ML VIAL IV SCH (01:28)
--- NOTE | 2019-03-30 01:30 | Progress Note ---
DATE: 03/29/2019 The patient is a 43-year-old gentleman with a history of hypertension, comes in with chest pain. HISTORY OF PRESENTING ILLNESS: Mr. Boy Nolen is a 43-year-old gentleman with a history of hypertension and hyperlipidemia, was in usual state of health until a week ago when the patient started to have some chest pain and yesterday the patient's pain got exacerbated. This morning, the patient woke up and found his blood pressure to be very high, chest pain was ensued along with this and the patient came to the emergency room and was admitted for chest pain, rule out coronary syndrome. MEDICATIONS AT HOME: Includes lisinopril, hydrochlorothiazide, and multivitamin, Acra-3 fatty acid. CURRENT MEDICATIONS: The patient's current medications include aspirin and is on morphine and nitroglycerin. REVIEW OF SYSTEMS: Positive for chest pain. Positive for some shortness of breath and diaphoresis this morning. No constipation. No rectal bleeding. No hematochezia. No hematemesis. No blurry vision and no diplopia and positive for headaches. The patient has history of anxiety and also history of reflux esophagitis. ALLERGIES: ALLERGIC TO PENICILLIN. SOCIAL HISTORY: No EtOH. No IV drug abuse. Has a very high stressful job. No smoking history at this time, used to be a smoker. FAMILY HISTORY: Positive for hypertension. Positive for coronary artery disease and positive for hyperlipidemia in the family. PHYSICAL EXAMINATION: GENERAL: The patient is alert and oriented x3. HEENT: Normocephalic, atraumatic. VITAL SIGNS: Initial vital signs, temperature is 98.9, pulse is 73, respirations 16, blood pressure is 156/101. HEENT: Normocephalic, atraumatic. Pupils are reactive to light and accommodation. CVS: S1, S2 normal. Regular rate and rhythm. ABDOMEN: Nontender, nondistended. EXTREMITIES: No clubbing, no cyanosis, no edema. LABORATORY VALUES: Initial white count 6.50, hemoglobin of 15, hematocrit of 42.1. Chemistries show sodium of 137, potassium of 3.3, BUN of 12, creatinine of 1.06, calcium 10.4, magnesium 2.4. Creatine kinase 212. BNP was 10. Cholesterol total was 317, triglycerides 46, LDL not calculated because of high triglyceride, and HDL was 44. Coags were normal. D-dimer 0.19 and troponin's were negative, less than 0.001. Chest x-ray, no acute cardiopulmonary disorders were seen. ASSESSMENT: 1. Chest pain, rule out acute coronary syndrome. 2. Hypertension. 3. Hyperlipidemia. 4. Family history of CAD. 5. History of hypertension and high stressful job. PLAN: Dr. Travis Grant has been consulted. Troponins to be trended. The patient can have a cardiac stress test if possible in the morning and possible discharge in the morning. Further recommendation, clinical course and also depending on cardiology consult. MD ESTEPHANIA Zambrano/MODL /[id number]
[2019-03-30 03:58] VITALS: BP 107/58
[2019-03-30 05:31] LABS: BASOPHILS # (AUTO) 0.1 (0.0-0.1); BASOPHILS % 0.6 % (0.0-1.0); EOSINOPHILS # (AUTO) 0.3 (0.0-0.4); EOSINOPHILS % 3.6 % (0.0-6.0); HEMATOCRIT 43.2 % (38.2-49.6); HEMOGLOBIN 14.7 g/dL (14.0-18.0); LYMPHOCYTES % 38.1 % (18.0-39.1); MEAN CORPUSCULAR HEMOGLOBIN 29.2 pg (28-32); MONOCYTES # (AUTO) 0.8 (0.2-0.8); MONOCYTES % 10.5 % (4.4-11.3); NEUTROPHILS # (AUTO) 3.7 (2.1-6.9); NEUTROPHILS % 46.8 % (38.7-80.0); PLATELET COUNT 282 x10e3/uL (140-360); RED BLOOD COUNT 5.04 x10e6/uL (4.3-5.7); RED CELL DISTRIBUTION WIDTH 12.3 % (11.7-14.4)
[2019-03-30 05:32] LABS: MEAN CORPUSCULAR VOLUME 85.7 fL (81-99)
[2019-03-30 05:56] LABS: CREATINE KINASE 147 IU/L (30-200)
--- NOTE | 2019-03-30 06:00 | NUR ---
Resting in bed with at beside. No issues or concerns at this time. Call light within reach. Will continue to monitor.
[2019-03-30] MEDS ORDERED: LISINOPRIL 20 MG TAB PO ONE ×2 (07:00→12:00)
[2019-03-30 07:07] LABS: ALANINE AMINOTRANSFERASE 38 IU/L (0-55); ALBUMIN 4.2 g/dL (3.5-5.0); ALBUMIN/GLOBULIN RATIO 1.2 (0.8-2.0); ALKALINE PHOSPHATASE 51 IU/L (40-150); ANION GAP 15.4 mmol/L (8-16); BLOOD UREA NITROGEN 14 mg/dL (7-26); BUN/CREATININE RATIO 12 (6-25); CARBON DIOXIDE 25 mmol/L (22-29); CHLORIDE 100 mmol/L (98-107); CHOL/HDL RATIO 8.6 (3.9-4.7); CHOLESTEROL 293 MD/DL (0-199); CREATININE, SERUM 1.18 mg/dL (0.72-1.25); EST GLOMERULAR FILTRATION RATE > 60 ML/MIN (60-); GLUCOSE 103 mg/dL (74-118); HDL CHOLESTEROL 34 MG/DL (40-60); POTASSIUM 4.4 mmol/L (3.5-5.1); SODIUM 136 mmol/L (136-145); TRIGLYCERIDES 577 MG/DL (0-149)
--- NOTE | 2019-03-30 07:10 | Progress Note ---
DATE: 03/30/2019 SUBJECTIVE: This is a 43-year-old gentleman, who comes in with chest pain. The patient is scheduled for his Lexiscan today. Troponins have been trended to be negative so far, awaiting one set of enzymes still. Pain free. Did have episode of bradycardia last night. The patient does snore and has been noted to be snoring consistently by the . MEDICATIONS: Acetaminophen, aspirin, atorvastatin, famotidine, morphine sulfate as needed, nitroglycerin, Zofran as needed too. OBJECTIVE: VITAL SIGNS: Temperature is 97.7, afebrile for the last 48 hours, pulse is 58, respirations of 16, blood pressure is 107/58. HEENT: Normocephalic, atraumatic. Pupils are reactive. CVS: S1, S2 normal. Regular rate and rhythm. ABDOMEN: Nontender, nondistended. EXTREMITIES: No clubbing, no cyanosis, no edema. LABORATORY VALUES: Second set of enzymes are normal. White count is normal at 7.88, hemoglobin of 14.7, hematocrit of 43.7. Sodium and potassium pending. His potassium yesterday of 3.3, anion gap 16.3. Total cholesterol 317, triglycerides 46, and LDL unable to determine. ASSESSMENT: 1. Chest pain, rule out acute coronary syndrome. 2. Hypertension. 3. Hyperlipidemia. 4. History of questionable sleep apnea. PLAN: Lexiscan today and outpatient sleep study. We will continue to monitor the patient. Further recommendation per clinical course. Can be discharged today if Lexiscan and echocardiogram are negative. MD ESTEPHANIA Zambrano/MODL /[id number]
[2019-03-30 07:30] VITALS: BP 132/84
--- NOTE | 2019-03-30 07:30 | NUR ---
Pt received resting in bed. Alert and oriented x4, pt is NPO for Stress test due to chest pain. Oriented to staff and surroundings. Encouraged to press call ortega if help needed. Emotional support given. Call ortega within reach. Will monitor
[2019-03-30] MEDS ORDERED: REGADENOSON 0.4 MG/5 ML SYR IV ONE (08:13)
[2019-03-30] MEDS ORDERED: ONDANSETRON HCL 4 MG ORAL DISINTEGRATING TAB PO PRN (08:15)
--- NOTE | 2019-03-30 08:35 | NUR ---
Pt left unit for stress test
[2019-03-30] MEDS ORDERED: OMEGA 3 POLYUNSAT FATTY ACIDS 1000 MG SOFTGEL PO SCH (09:00)
[2019-03-30] MEDS ORDERED: ASPIRIN 81 MG ENTERIC COATED PO SCH (09:00)
--- NOTE | 2019-03-30 10:30 | NUR ---
Pt returned to room post stress test
--- NOTE | 2019-03-30 10:59 | NUR ---
Received a call from Dr. Grant stating stress test was negative. Will inform Dr. Chino
[2019-03-30 11:45] VITALS: BP 143/98
--- NOTE | 2019-03-30 12:04 | NUR ---
Pt given discharge instructions regarding meds, diet, activities, s/s to report and follow up appointment. Dr. Chino to call in cholesterol medication for pt. Pt verbalized understanding of teaching. Refusing wheelchair. Will be escorted off unit.
--- NOTE | 2019-03-30 12:13 | NUR ---
Pt left unit with all belongings
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
--- NOTE | 2019-03-31 16:39 | Progress Note ---
DATE: 03/30/2019 PROCEDURE INDICATION: Chest pain, atypical. INTERPRETING AND SUPERVISING PHYSICIAN: Travis Palacios MD, Interventional Cardiology. PROCEDURE PERFORMED: Lexiscan myocardial perfusion, single day, rest and stress perfusion stress test with technetium and Lexiscan. FINDINGS: At rest, heart rate of 74, blood pressure 116/82. Resting EKG shows normal sinus rhythm, normal EKG. After Lexiscan was administered, heart rate tejinder to 96 beats per minute and blood pressure increased to 123/77. There were no significant ST changes or arrhythmias throughout stress or recovery. Myocardial perfusion reveals normal rest and stress perfusion. Gated images demonstrate preserved left ventricular systolic function, normal regional wall motion and left ventricular ejection fraction of 58%. CONCLUSION: 1. Normal hemodynamic response to Lexiscan stress. 2. Normal electrocardiographic response to Lexiscan stress. 3. Normal myocardial perfusion at rest and stress. 4. Preserved left ventricular systolic function with left ventricular ejection fraction of 58%. Travis Palacios MD AFV/MODL /[id number]
--- NOTE | 2019-06-03 00:38 | Discharge Summary ---
HISTORY: The patient is admitted to the hospital for chest pain. A consult with Dr. Rudy Robles was done. The patient had a normal hemodynamic response to the Lexiscan, normal electrocardiographic response to Lexiscan and preserved LV function of 58%. The patient was discharged home in a stable condition. FINAL DIAGNOSES: Chest pain, rule out acute coronary myocardial infarction, status post Lexiscan is negative. For further information, look in the chart. For medicines on discharge, look in the medical reconciliation sheet. Regan Chino MD ASJ/MODL /[id number]
== END 2019-03-30 12:15 | disposition home or self-care (01) ==
LOC: ER 11:34 → ERHOLD 13:43 → IMCU 15:19
PROVIDERS: ADMIT Family Medicine; ATTEND Family Medicine
DX: R07.89 Other chest pain (principal); Z82.49 Family history of ischemic heart disease and other diseases of the circulatory system; I10 Essential (primary) hypertension; K21.9 Gastro-esophageal reflux disease without esophagitis; N40.0 Benign prostatic hyperplasia without lower urinary tract symptoms; Z88.0 Allergy status to penicillin; E87.6 Hypokalemia; Z87.891 Personal history of nicotine dependence; E66.01 Morbid (severe) obesity due to excess calories; E78.2 Mixed hyperlipidemia; Z72.89 Other problems related to lifestyle; Z68.30 Body mass index [BMI] 30.0-30.9, adult
CPT/HCPCS: 36415 ×2; 71045; 78452; 80053 ×2; 80061 ×2; 81001; 82550 ×2; 82553 ×2; 83735; 83880; 84484 ×2; 85025 ×2; 85379; 85610; 85730; 93005; 93017; 93306; 99284; A9502; G0378 ×2; J2270; J2785